=== PATIENT | male | born 1965 | race African-American/Black ===

== ENCOUNTER 2018-11-05 19:46 | Inpatient (IN) | payer OTHER ==
[~2018-11-05] VITALS: Ht 170.2 cm; Wt 79.4 kg
[2018-11-05 19:52] VITALS: Ht 170.2 cm; Wt 79.4 kg
--- NOTE | 2018-11-05 19:58 | NUR ---
PT BIB [facility], FROM [facility], FOR SYNCOPAL EPISODE. PER MEDIC, STAFF FROM [facility] CALLED REPORTING MAN DOWN IN THE SHOWER, PULSELESS AND APNEIC, [facility] STARTED COMPRESSIONS. PER MEDIC, THEY ARRIVED ON SCENE AT 191, PT HAD A PULSE AND BREATHING, VS WNL. PER MEDIC, CIM STS THAT THEY GAVE 5 ROUNDS OF NARCAN, BUT UNAWARE OF THE DOSE. PER MEDIC, EKG DONE EN ROUTE W/ NSR. BS 246 EN ROUTE. PER MEDIC PT "JUST SEEMED ALTERED, MAKING INCOMPREHENSIBLE SOUNDS." PT A&O X4 UPON ASSESSMENT, SPEAKING SOFTLY, IN COMPLETE SENTENCES, ANSWERING QUESTIONS APPROPRIATELY. PT REPORTS CHEST "HEAVINESS", ABRASION NOTED OVER STERNUM. PT REPORTS THAT HIS MOUTH IS DRY. PT REPORTS NO OTHER COMPLAINTS. PT PLACED ON MICROSYSTEMS ENGINEER, PULSE OX, AND 2L O2 VIA NC. EKG BEING DONE AT BEDSIDE. VSS, RESPS E/U, NAD NOTED AT THIS TIME. MD AT BEDSIDE FOR MSE. BED IN LOW AND LOCKED POSITION, 2 BED RAILS UP, PT'S HANDS CUFFED TO SELF. 2 OFFICERS AT BEDSIDE. WILL CONTINUE TO MONITOR.
[2018-11-05 20:17] LABS: BASOPHIL % 0.4 % (0-2); PLATELET COUNT 255 x10^3mcL (130-400); RED CELL DISTRIBUTION WIDTH 13.4 % (11.5-14.5)
--- NOTE | 2018-11-05 20:25 | NUR ---
PT TAKEN TO X-RAY VIA BESSIE
[2018-11-05 20:29] LABS: CALCIUM 8.5 mg/dL (8.5-10.1); CARBON DIOXIDE 25.6 mmol/L (21-32); CHLORIDE SERUM 101 mmol/L (98-107); CREATININE SERUM 1.3 mg/dL (0.7-1.3); GFR1 > 60 mL/min; GLUCOSE SERUM 217 mg/dL (74-106); POTASSIUM SERUM 3.7 mmol/L (3.5-5.1); SODIUM SERUM 140 mmol/L (136-145)
[2018-11-05 20:33] LABS: ALBUMIN 3.8 g/dL (3.4-5.0); ALKALINE PHOSPHATASE 60 U/L (46-116); ALT/SGPT 35 U/L (16-63); AST/SGOT 29 U/L (15-37); BILIRUBIN TOTAL 0.7 mg/dL (0.20-1.00); CHOLESTEROL 173 mg/dL (<200); HDL CHOLESTEROL 45 mg/dL (40-60); PHOSPHOROUS 3.6 mg/dL (2.5-4.9)
--- NOTE | 2018-11-05 21:00 | NUR ---
PT ASKED TO PROVIDE URINE SAMPLE. PT STS THAT HE NEEDS WATER, AND CANNOT PROVIDE URINE RIGHT NOW. PT GIVEN WATER.
--- NOTE | 2018-11-05 21:38 | NUR ---
PT ASKED TO PROVIDE URINE SAMPLE, PT STS THAT HE STILL CANNOT GO. PT GIVEN MORE WATER. INFORMED PT THAT I WILL RETURN SHORTLY FOR SAMPLE.
--- NOTE | 2018-11-05 22:05 | NUR ---
RECIEVED VERBAL ADMIT ORDERS FROM DR. PADILLA VIA TELEPHONE
[2018-11-05] MEDS ORDERED: PRAZOSIN HYDROCH1 MG PO (22:11)
[2018-11-05] MEDS ORDERED: NALTREXONE HCL50 MG PO (22:11)
[2018-11-05] MEDS ORDERED: KEN025C (22:12)
[2018-11-05] MEDS ORDERED: ESCITALOPRAM20 M1 PO (22:12)
[2018-11-05] MEDS ORDERED: XOPENEX1.25 MG/3 (22:12)
[2018-11-05] MEDS ORDERED: MASON NATURAL1000 IU (22:12)
[2018-11-05] MEDS ORDERED: ELOCON0.11 (22:13)
[2018-11-05] MEDS ORDERED: SPIRIVA18 MC1 (22:13)
--- NOTE | 2018-11-05 22:19 | NUR ---
ATTEMPTED TO CALL REPORT. RN STS THAT SHE IS IN ISO ROOM TAKING WOUND PHOTOS AND WILL HAVE TO CALL BACK
--- NOTE | 2018-11-05 22:40 | NUR ---
REPORT GIVEN TO MP PARSON
--- NOTE | 2018-11-05 23:00 | NUR ---
[email or web address] ACCOMPANIED BY RN, TRANSPORTER, AND 2 LONG TERM GUARDS. PT A/A/O X 4, CALM, COOPERATIVE; WEARS GLASSES (NOT W/ PT). AMBULATORY, NO GAIT OR BALANCE IMPAIRMENT NOTED WALKING FROM [place] TO BED. ON TELE # 1, NSR, HR 78, C/O CONSTANT ACHING C/P TO MEDIAL RIGHT CHEST, EXACERBATED BY INSPIRATION, MOVEMENT, AND TWISTING; ABRASION NOTED TO SAME SITE 2/2 CPR PT RECEIVED. PT STATES HE DOES NOT REMEMBER ANYTHING AFTER HE HAD SYNCOPAL EPISODE. LUNGS CTAB, CHEST RISING EVENLY, 4LNC, 97%, NO ACUTE RESPIRATORY DISTRESS NOTED. ABD DISTENDED, FIRM, NORMOACTIVE BOWEL SOUNDS AND TYMPANY UPON PERCUSSION X 4 QUADS, LAST BM 11/05/18, FORMED. NOTED SYNDACTYLY TO R INDEX/MIDDLE FINGER AND MISSING/DEFORMED FINGERS TO L HAND. IV SITE LAC 18G, CDI. ORIENTED PT TO ROOM, BED CONTROLS, CALL LIGHT SYSTEM. SIDE RAILS UP X 2, BED IN LOW POSITION, 2 GUARDS BY BEDSIDE. WILL ENDORSE TO EB [place].
--- NOTE | 2018-11-05 23:10 | NUR ---
RECEIVED PT FROM [facility]OURCE RNPARVIN. NO ACUTE DISTRESS OBSERVED AT THIS TIME. BREATHING EVEN AND UNLABORED. COMFORT AND SAFETY MEASURES IN PLACE. ALL NEEDS ASSESSED AND ATTENDED TO. CALL LIGHT WITHIN REACH. WILL CONTINUE TO MONITOR
[2018-11-05 23:58] VITALS: BP 123/89
--- NOTE | 2018-11-06 04:49 | NUR ---
NO SIGNIFICANT CHANGES TO REPORT, PT COMPLIED WITH NURSING CARE THROUGHOUT THE SHIFT WITH NO ACUTE EVENTS OVERNIGHT. NO ACUTE DISTRESS NOTED AT THIS TIME, PT LAYING IN BED, BREATHING EVEN AND UNLABORED, AROUSABLE TO VERBAL STIMULI. COMFORT AND SAFETY MEASURES MAINTAINED. ALL NEEDS ASSESSED AND ATTENDED TO. CALL LIGHT WITHIN REACH. WILL CONTINUE TO MONITOR AND ENDORSE CARE TO DAY SHIFT NURSE.
[2018-11-06 05:41] VITALS: BP 118/85
[2018-11-06 06:22] LABS: BASOPHIL % 0.3 % (0-2); PLATELET COUNT 252 x10^3mcL (130-400); RED CELL DISTRIBUTION WIDTH 14.1 % (11.5-14.5)
[2018-11-06 06:59] LABS: T4(THYROXINE) 6.5 ug/dL (4.7-13.3)
--- NOTE | 2018-11-06 07:25 | NUR ---
RECEIVED PT. IN BED A/A/O X3. NO SOB, NO N/V NOTED. PT. DENIES ANY PAIN AT THIS TIME. PT. DENIES ANY DIZZINESS. IV SITE NOTED TO Brie ROBLERO. CIM OFFICERS X2 AT BEDSIDE. BED IN LOW POS., CALL LIGHT WITHIN REACH. SIDE RAILS UP X3.
[2018-11-06 09:22] VITALS: BP 129/75
[2018-11-06 11:33] LABS: ERYTHROCYTE SED RATE 21 mm/hr (0-20)
--- NOTE | 2018-11-06 11:50 | NUR ---
PT. IS BEING SEEN BY DR. PADILLA AT THIS TIME.
[2018-11-06 13:10] VITALS: BP 128/82
--- NOTE | 2018-11-06 16:20 | NUR ---
URINE COLLECTED AND SENT TO LAB DEPT. FOR UDS.
[2018-11-06 16:41] LABS: AMPHETAMINE QUAL UR NONE DETECTED (See below)
--- NOTE | 2018-11-06 17:11 | NUR ---
REMAINS IN STABLE CONDITION AT THIS TIME. WILL CONTINUE TO MONITOR.
[2018-11-06 18:20] VITALS: BP 132/78
--- NOTE | 2018-11-06 18:41 | NUR ---
RECEIVED T.O FROM DR. DING TO REQUEST SS FOR TRANSFER TO HIGHER LEVEL OF CARE FOR ANGIOGRAM AND TO START PT ON LOVENOX 80MG SQ BID AND ASA 81 MG PO DAILY. ORDERS CARRIED OUT. DR. PADILLA WAS CALLED AND [facility] MD TO ORDER THROUGHT CM TO MAKE ARRANGEMENTS. ATTENDING NURSE MADE AWARE.
--- NOTE | 2018-11-06 19:30 | NUR ---
RECIEVED PT RESTING IN BED WITH NO ACUTE DISTRESS NOTED AT THIS TIME, CORRECTIONS OFFICERS AT BEDSIDE, PT DENIES PAIN OR SOB AT THIS TIME, ASSESSMENT PERFORMED AT THIS TIME, SAFETY PRECAUTIONS IN PLACE, WILL CONTINUE TO MONITOR.
[2018-11-06 21:00] VITALS: BP 128/88
--- NOTE | 2018-11-06 22:09 | NUR ---
PT COMPLAINTING OF INSOMNIA REQUESTING SOMETHING TO HELP HIM SLEEP, ADMINISTERED AMBIEN PER ORDER (SEE MAR)
--- NOTE | 2018-11-06 23:40 | NUR ---
PT SLEEPING IN BED COMFORTABLY, NO ACUTE DISTRESS AT THIS TIME, RESPIRATIONS EVEN AND UNLABORED, CORRECTIONS OFFICERS AT BEDSIDE, SAFETY PRECAUTIONS IN PLACE, WILL CONTINUE TO MONITOR
--- NOTE | 2018-11-07 03:03 | NUR ---
PT SLEEPING COMFORTABLY, NO ACUTE DISTRESS AT THIS TIME, RESPIRATIONS EVEN AND UNLABORED, CORECTIONS OFFICERS AT BEDSIDE, SAFETY PRECAUTIONS IN PLACE , WILL CONTINUE TO MONITOR
--- NOTE | 2018-11-07 05:11 | NUR ---
PT HAD NO ACUTE DISTRESS THROUGH THE NIGHT, PT REQUESTED AMBIEN FOR INSOMNIA AND WHICH WAS ADMINISTERED AND PT SLEPT THROUGH NIGHT, PT HAD NO COMPLAINTS OF CHEST PAIN OR SOB THROUGH SHIFT, CORRECTIONS OFFICERS AT BEDSIDE THROUGH SHIFT SAFETY PRECAUTIONS WERE MAINTAINED, WILL CONTINUE TO MONITOR AND ENDORSE CARE TO ONCOMING RN
[2018-11-07 05:16] VITALS: BP 137/84
[2018-11-07 06:06] LABS: RAPID PLASMA REAGIN Non Reactive (Non Reactive)
[2018-11-07 06:38] LABS: CALCIUM 9.1 mg/dL (8.5-10.1); CHLORIDE SERUM 104 mmol/L (98-107); GFR1 > 60 mL/min; GLUCOSE SERUM 99 mg/dL (74-106); POTASSIUM SERUM 3.7 mmol/L (3.5-5.1); SODIUM SERUM 139 mmol/L (136-145)
[2018-11-07 06:48] LABS: BASOPHIL % 0.4 % (0-2); PLATELET COUNT 234 x10^3mcL (130-400); RED CELL DISTRIBUTION WIDTH 13.5 % (11.5-14.5)
--- NOTE | 2018-11-07 07:30 | NUR ---
RECEIVED PT. IN BED A/A/O X3. NO SOB, NO N/V NOTED. PT. DENIES ANY PAIN AT THIS TIME. PT. DENIES DIZZINESS AT THE PRESENT TIME. CIM OFFICERS X2 AT BEDSIDE. IV SITE NOTED TO L AC. BED IN LOW POS., CALL LIGHT WITHIN REACH. SIDE RAILS UP X3.
[2018-11-07 08:57] VITALS: BP 146/91
--- NOTE | 2018-11-07 12:15 | NUR ---
PT. IS BEING SEEN BY DR. PADILLA AT THIS TIME.
[2018-11-07 13:14] VITALS: BP 145/80
--- NOTE | 2018-11-07 16:30 | NUR ---
CALLED AND NOTIFIED DR. PADILLA REGARDING THE PLAN TO TRANSFER PT. FOR HIGHER LEVEL OF CARE FOR ANGIOGRAM. DR. PADILLA STATED OK FOR TRANSFER ARRANGEMENT TO BE STARTED BY THE HOSPITAL PUBLIC RELATIONS ACCOUNT EXECUTIVE TOMORROW.
--- NOTE | 2018-11-07 17:03 | NUR ---
REMAINS IN STABLE CONDITION AT THIS TIME. CIM OFFICERS X2 AT BEDSIDE. WILL CONTINUE TO MONITOR.
[2018-11-07 17:35] VITALS: BP 151/65
[2018-11-07 18:11] VITALS: BP 100/79
--- NOTE | 2018-11-07 19:46 | NUR ---
RECIEVED PT RESTING IN BED COMFORTABLY WITH CORRECTIONS OFFICERS AT BEDSIDE, ASSESSMENT PERFORMED AT THIS TIME, PT DENIES PAIN OR SOB AT THIS TIME, IV TO THE LEFT FOREARM, SALINE LOCKED, SAFETY PRECAUTIONS IN PLACE, WILL CONTINUE TO MONITOR
[2018-11-07 20:44] VITALS: BP 148/89
--- NOTE | 2018-11-08 03:00 | NUR ---
PT SLEEPING IN BED WITH NO ACUTE DISTRESS NOTED AT THIS TIME, RESPIRATIONS EVEN AND UNLABORED, SAFETY PRECAUTIONS IN PLACE, WILL CONTINUE TO MONITOR
[2018-11-08 04:49] VITALS: BP 112/76
--- NOTE | 2018-11-08 04:50 | NUR ---
PT SLEEPING IN BED WITH NO ACUTE DISTRESS NOTED AT THIS TIME, PT EASILY AROUSABLE, DENIES PAIN OR SOB AT THIS TIME, CORRECTIONS OFFICERS AT BEDSIDE, SAFETY PRECAUTIONS IN PLACE, WILL CONTINUE TO MONITOR
--- NOTE | 2018-11-08 05:14 | NUR ---
PT SLEPT THROUGH THE MAJORITY OF THE NIGHT, PT HAD ONE EPISODE OF PAIN TREATED WITH NORCO PRN PER ORDER, PT EXPRESSED ANXIETY AND DIFFICULTY SLEEPING WHICH WAS TREATED WITH PRN ATIVAN PER ORDER (SEE MAR), CORRECTIONS OFFICERS AT BEDSIDE THROUGH THE NIGHT, SAFETY PRECAUTIONS MAINTAINED THROUGH SHIFT WILL CONTINUE TO MONITOR AND ENDORSE CARE TO ONCOMING RN
--- NOTE | 2018-11-08 07:35 | NUR ---
FOUND PATIENT SITTING UP IN BED WITH 2 CORRECTIONAL OFFICERS AT BEDSIDE. PATIENT A/0X4 ON RA, NO APPARENT DISTRESS AT THIS TIME, EATING BREAKFAST TRAY. IV TO LEFT AC, FLUSHES WELL. CALL LIGHT WITHIN REACH
[2018-11-08 08:17] VITALS: BP 155/74
[2018-11-08 09:10] LABS: RHEUMATOID ARTHRITIS FACTOR 11.3 IU/mL (0.0-13.9)
--- NOTE | 2018-11-08 09:56 | NUR ---
ADMNISTERED MEDICATIONS PER JUL. PATIENT REQUESTED SOMTHING TO COVER THE SKIN OF HIS ANKLE TO REDUCE CONTACT WITH THE HANDCUFF RESTRAINT ON THE LEFT ANKLE
[2018-11-08 12:11] VITALS: BP 127/79
--- NOTE | 2018-11-08 12:41 | NUR ---
VISUALIZED PATIENT SITTING UP IN BED WATCHING TELEVISION. PATIENT HAS NO COMPLAINTS AT THIS TIME. CALL LIGHT WITHIN REACH, TWO CORRECTIONAL OFFICERS IN ROOM WITH PATIENT
[2018-11-08 13:06] VITALS: BP 127/79
--- NOTE | 2018-11-08 15:52 | NUR ---
PATIENT IS ACCEPTED AT [facility], AWAITING ETA FOR [facility] FROM [facility]RECTIONAL OFFICERS. OFFICERS REPORTED THAT [facility] IS CURRENTLY UNAVAILABLE AND THEIR SIMEON IS TRYING TO FIND REPLACEMENT IS[facility]. UPDATED DIRECTOR OF RETAIL MARKETING AND WILL FOLLOW UP TO FIND TIME WHEN [facility] IS AVAILABLE SO PATIENT CAN BE TRANSPORTED.
[2018-11-08 17:17] VITALS: BP 144/93
--- NOTE | 2018-11-08 18:07 | NUR ---
FOLLOW UP THE GUARDS FOR [facility] NO TIME YET, ERICK MIRANDA WAS INFORM AND WILL CALL THE [facility] DEPARTMENT.
--- NOTE | 2018-11-08 18:29 | NUR ---
CO'S REPORTED THAT [facility] WILL BE AT [place] WITHIN 30 MINUTES. SPOKE WITH CASE MANAGEMENT, RUBEN, AND INFORMED HER. CALLED [facility] SPOKE WITH WALLACE AND ACTIVATED THE [facility] TRANSPORT TO [facility]. RECEIVED ETA OF 30 MINUTES FROM WALLACE AT [facility]
--- NOTE | 2018-11-08 18:46 | NUR ---
CALLED REPORT TO NATASHA PARSON AT [facility]. PATIENT IS GOING TO BE ACCEPTED IN ROOM 4417. ADDRESSED ALL QUESTIONS FROM RECEIVEING NURSE.
--- NOTE | 2018-11-08 19:01 | NUR ---
[facility] ARRIVED TO TRANSPORT PATIENT. GAVE REPORT TO MEDIC. ANSWERED ALL QUESTIONS. THEY ARE NOW WAITING FOR [facility] FROM [facility] TO COME
--- NOTE | 2018-11-08 19:05 | NUR ---
OFFERED ORANGE GOWN TO PATIENT TO CHANGE, REMOVED TELE BOX #1 RETURN TO [facility]. WAITING FOR [facility]. [facility] TRANSPORT HERE ALREADY GOT REPORT ON PATIENT.
== END 2018-11-08 19:10 | disposition short-term general hospital (02) | DRG 282 ==
LOC: ED 19:46 → DU 22:04
PROVIDERS: Emergency Medicine; ADMIT Internal Medicine
DX: I21.4 Non-ST elevation (NSTEMI) myocardial infarction (principal); I10 Essential (primary) hypertension; I25.10 Atherosclerotic heart disease of native coronary artery without angina pectoris; K74.60 Unspecified cirrhosis of liver; Z79.899 Other long term (current) drug therapy
CPT/HCPCS: 86431; G0378; J1650; Q0092